=== PATIENT | female | born 1980 | race African-American/Black ===

== ENCOUNTER 2017-07-02 14:22 | Observation (INO) ==
--- NOTE | 2017-07-02 15:40 | Emergency Department Note ---
Disposition Clinical Impression: Slurred speech, Weakness Headache Qualifiers: Headache type: unspecified Headache chronicity pattern: acute headache Intractability: not intractable Qualified Code(s): R51 - Headache Disposition: Admitted As Inpatient Condition: Fair Time of Disposition: 18:18 General Adult HPI - General Chief complaint: ED Syncope Stated complaint: "I feel really weird" Time Seen by Provider: 07/02/17 14:34 Source: patient Limitations: no limitations Nursing Notes Reviewed: Yes Vital Signs Reviewed: Yes - History of Present Illness HPI Narrative: Patient is a 37-year-old female that presents to the emergency department for not feeling right. She states that this morning after eating breakfast she started to feel lightheaded right before she was going to stand up and then felt like her left leg was somewhat weak. Her also reports that during this episode she was slurring her speech and has had slurred speech but has been improving. Patient states that she thought it could be related to her blood sugar however she has lost her glucometer at home and was not able to take her blood glucose. Patient states that the symptoms that she was experiencing at home have since resolved but she still feels tired. Pain Scale: 3 - Related Data Home Medications Medication Instructions Recorded Confirmed Metformin HCl [Glucophage] 1,000 mg PO DAILY #0 11/02/15 07/02/17 Multivitamin [One Daily Essential] 1 tab PO DAILY 05/30/16 07/02/17 Escitalopram [Lexapro] 20 mg PO DAILY 07/02/17 07/02/17 Lansoprazole [Prevacid] 15 mg PO DAILY 07/02/17 07/02/17 Sitagliptin Phosphate [Januvia] 50 mg PO DAILY 07/02/17 07/02/17 Allergies Allergy/AdvReac Type Severity Reaction Status Date / Time aloe vera Allergy Hives Verified 07/02/17 14:32 [From [employer]] ascorbic acid Allergy Hives Verified 07/02/17 14:32 [From [employer] [facility]] dimethicone Allergy Hives Verified 07/02/17 14:32 [From [employer] [facility]] Emollient Combination No.41 Allergy Hives Verified 07/02/17 14:32 [From [employer] [facility]] petrolatum,white Allergy Hives Verified 07/02/17 14:32 [From [employer] [facility]] vitamin A Allergy Hives Verified 07/02/17 14:32 [From [employer] [facility]] vitamin E (d-alpha Allergy Hives Verified 07/02/17 14:32 tocopherol) [From [employer] [facility]] latex AdvReac Rash Verified 07/02/17 14:32 All systems ED: reviewed and negative except as stated. Constitutional: Reports: other (Tired) Eyes: Denies: vision change Cardiovascular: Denies: chest pain Respiratory: Denies: dyspnea Gastrointestinal: Denies: abdominal pain, nausea, vomiting Neurological: Reports: weakness (Mild weakness of left lower extremity that has resolved) Past Medical History - Past Medical History Medical history: Reports: diabetes Surgical history: Reports: cholecystectomy, other Psychiatric history: Reports: anxiety, ADHD, depression - Social History Smoking Status: Current every day smoker Smokeless Tobacco Status: No Alcohol use: Reports: occasionally Drug use: Reports: none Physical Exam - General Limitations: no limitations General appearance: alert, in no apparent distress - Head Head exam: atraumatic, normocephalic - Eye Eye exam: Present: normal appearance, EOMI - Neck Neck exam: Present: normal inspection, full ROM, trachea midline - Respiratory Respiratory exam: Present: normal lung sounds bilaterally. Absent: respiratory distress, wheezes - Cardiovascular Cardiovascular exam: Present: regular rate, normal rhythm, normal heart sounds, +S1, +S2 - Abdominal Exam Abdominal exam: Present: soft, Non-Tender, normal bowel sounds - Neurological Exam Neurological exam: Present: alert, oriented X3 - Expanded Neurological Exam Patient oriented to: Present: person, place, time Cranial nerves: EOM function (II, III, IV, ): Normal, facial sensation (V): Normal, facial palsy (VII): Normal, gag reflex (IX): Normal, spinal accessory function (XI): Normal, tongue deviation (XII): Normal Cerebellar function: finger to nose: Normal, heel to patel: Normal Motor strength - LUE: 5/5 Motor strength - RUE: 5/5 Motor strength - LLE: 5/5 Motor strength - RLE: 5/5 Upper motor neuron exam: pronator drift: Absent bilaterally Sensory exam upper extremity: light touch: Normal Sensory exam lower extremity: light touch: Normal Coma Scale Eye Opening: Spontaneous Coma Scale Motor Response: Obeys Commands Coma Scale Verbal Response: Oriented Coma Scale Total: 15 - Psychiatric Psychiatric exam: Present: normal affect, normal mood - Skin Skin exam: Present: warm, dry, intact Course Vital Signs Temperature 98.4 F 07/02/17 14:29 Pulse Rate 96 07/02/17 14:29 Respiratory Rate 16 07/02/17 14:29 Blood Pressure 111/75 07/02/17 14:29 O2 Sat by Pulse Oximetry 96 07/02/17 14:29 Temperature 98.4 F 07/02/17 14:29 Pulse Rate 92 07/02/17 16:26 Respiratory Rate 16 07/02/17 16:26 Blood Pressure 107/74 07/02/17 16:26 O2 Sat by Pulse Oximetry 96 07/02/17 16:26 Oxygen Delivery Oxygen Delivery Room Air Medical Decision Making - MDM Narrative Medical decision making narrative: Due the patient having episode of slurred speech with, dizziness, headache and possible left lower extremity weakness we will obtain a CT of the head to rule out any intracranial pathology is. Also do a laboratory workup on this patient consisting of CBC, BMP, chest x-ray, EKG, troponin and blood glucose. The patient's blood glucose was 136. The patient's CT CTA of head and neck are all negative for acute process. It showed a mild anemia of 11.2 however this appears to be chronic for her. The remainder of the patient's laboratory testing was unremarkable. Due the patient's symptoms of slurred speech, weakness and a headache it is concerning that this could possibly be a neural- related process and the patient should be admitted to the hospital for further evaluation and management. The patient's symptoms have completely resolved here in the emergency department. Family states that her speech is normal for her and has had no associated facial asymmetries or droops that they are aware of. No further testing here in the emergency department was indicated at this time. I called and spoken with the hospitalist and they have accepted the patient to their service. She will be admitted to the hospital at this time. - Lab Data Lab results reviewed: Yes I reviewed the patient's lab results. Result diagrams: 07/02/17 15:54 07/02/17 15:54 Lab Results 07/02/17 07/02/17 07/02/17 Range/Units 14:59 15:54 15:54 WBC 9.6 (4.3-11.1) K/mcL RBC 4.14 (3.82-4.97) M/mcL Hgb 11.2 L (11.5-15.4) g/dL Hct 35.8 (35.3-44.9) % MCV 86.5 (83.0-100.0) fL MCH 27.1 L (28.0-33.3) pg MCHC 31.3 L (31.6-35.5) g/dL RDW 15.9 H (11.5-14.5) % Plt Count 319 (140-400) K/mcL MPV 9.3 L (9.4-12.4) fL Immature Gran % 0.3 (0-4) % Seg Neutrophils % 65.5 % Lymphocytes % 26.1 % Monocytes % 6.4 % Eosinophils % 1.3 % Basophils % 0.4 % Neutrophils # 6.3 (1.6-8.9) K/mcL Lymphocytes # 2.5 (0.6-4.6) K/mcL Monocytes # 0.6 (0.0-1.3) K/mcL Eosinophils # 0.1 (0.0-0.6) K/mcL Basophils # 0.0 (0.0-0.2) K/mcL PT 10.6 (9.4-12.1) Seconds INR 1.0 APTT 28.9 (26.0-36.0) Seconds Sodium (136-145) mEq/L Potassium (3.5-5.1) mEq/L Chloride (98-107) mEq/L Carbon Dioxide (23-29) mEq/L BUN (6-20) mg/dL Creatinine (0.60-1.20) mg/dL Est GFR ( Amer) (> 60) Est GFR (Non-Af Amer) (> 60) BUN/Creatinine Ratio (6-26) Glucose (70-105) mg/dL POC Glucose 136 H (58-89) Calculated Osmolality (280-300) Calcium (8.6-10.3) mg/dL Troponin I (< 0.04) ng/mL Urine Color (Yellow) Urine Clarity (Clear) Urine pH (5.0-8.0) pH Units Ur Specific [place] (1.010-1.025) Urine Protein (Neg-Trace) mg/dL Urine Glucose (UA) (Normal) mg/dL Urine Ketones (Negative) mg/dL Urine Blood (Negative) Urine Nitrite (Negative) Urine Bilirubin (Negative) Urine Urobilinogen (Normal) mg/dL Ur Leukocyte Esterase (Negative) Ur Culture Indicated? (NO) Urine Test (Negative) 07/02/17 07/02/17 07/02/17 Range/Units 15:54 15:54 16:26 WBC (4.3-11.1) K/mcL RBC (3.82-4.97) M/mcL Hgb (11.5-15.4) g/dL Hct (35.3-44.9) % MCV (83.0-100.0) fL MCH (28.0-33.3) pg MCHC (31.6-35.5) g/dL RDW (11.5-14.5) % Plt Count (140-400) K/mcL MPV (9.4-12.4) fL Immature Gran % (0-4) % Seg Neutrophils % % Lymphocytes % % Monocytes % % Eosinophils % % Basophils % % Neutrophils # (1.6-8.9) K/mcL Lymphocytes # (0.6-4.6) K/mcL Monocytes # (0.0-1.3) K/mcL Eosinophils # (0.0-0.6) K/mcL Basophils # (0.0-0.2) K/mcL PT (9.4-12.1) Seconds INR APTT (26.0-36.0) Seconds Sodium 138 (136-145) mEq/L Potassium 3.8 (3.5-5.1) mEq/L Chloride 106 (98-107) mEq/L Carbon Dioxide 27 (23-29) mEq/L BUN 11 (6-20) mg/dL Creatinine 0.70 (0.60-1.20) mg/dL Est GFR ( Amer) > 60 (> 60) Est GFR (Non-Af Amer) > 60 (> 60) BUN/Creatinine Ratio 16 (6-26) Glucose 109 H (70-105) mg/dL POC Glucose (58-89) Calculated Osmolality 286 (280-300) Calcium 9.5 (8.6-10.3) mg/dL Troponin I < 0.03 (< 0.04) ng/mL Urine Color Yellow (Yellow) Urine Clarity Clear (Clear) Urine pH 6.0 (5.0-8.0) pH Units Ur Specific [place] 1.027 H (1.010-1.025) Urine Protein Negative (Neg-Trace) mg/dL Urine Glucose (UA) 250 H (Normal) mg/dL Urine Ketones Negative (Negative) mg/dL Urine Blood Negative (Negative) Urine Nitrite Negative (Negative) Urine Bilirubin Negative (Negative) Urine Urobilinogen Normal (Normal) mg/dL Ur Leukocyte Esterase Negative (Negative) Ur Culture Indicated? NO (NO) Urine Test (Negative) 07/02/17 Range/Units 16:26 WBC (4.3-11.1) K/mcL RBC (3.82-4.97) M/mcL Hgb (11.5-15.4) g/dL Hct (35.3-44.9) % MCV (83.0-100.0) fL MCH (28.0-33.3) pg MCHC (31.6-35.5) g/dL RDW (11.5-14.5) % Plt Count (140-400) K/mcL MPV (9.4-12.4) fL Immature Gran % (0-4) % Seg Neutrophils % % Lymphocytes % % Monocytes % % Eosinophils % % Basophils % % Neutrophils # (1.6-8.9) K/mcL Lymphocytes # (0.6-4.6) K/mcL Monocytes # (0.0-1.3) K/mcL Eosinophils # (0.0-0.6) K/mcL Basophils # (0.0-0.2) K/mcL PT (9.4-12.1) Seconds INR APTT (26.0-36.0) Seconds Sodium (136-145) mEq/L Potassium (3.5-5.1) mEq/L Chloride (98-107) mEq/L Carbon Dioxide (23-29) mEq/L BUN (6-20) mg/dL Creatinine (0.60-1.20) mg/dL Est GFR ( Amer) (> 60) Est GFR (Non-Af Amer) (> 60) BUN/Creatinine Ratio (6-26) Glucose (70-105) mg/dL POC Glucose (58-89) Calculated Osmolality (280-300) Calcium (8.6-10.3) mg/dL Troponin I (< 0.04) ng/mL Urine Color (Yellow) Urine Clarity (Clear) Urine pH (5.0-8.0) pH Units Ur Specific [place] (1.010-1.025) Urine Protein (Neg-Trace) mg/dL Urine Glucose (UA) (Normal) mg/dL Urine Ketones (Negative) mg/dL Urine Blood (Negative) Urine Nitrite (Negative) Urine Bilirubin (Negative) Urine Urobilinogen (Normal) mg/dL Ur Leukocyte Esterase (Negative) Ur Culture Indicated? (NO) Urine Test Negative (Negative) - Radiology Data Radiology results reviewed: Yes I reviewed the patient's radiology results. Chest X-Ray 07/02/17 15:24 IMPRESSION: No evidence of acute cardiopulmonary disease. D/ / 07/02/2017 15:59:23 Christopher Harris MD / ralph Interpreting Provider: Christopher Harris MD Head CT 07/02/17 15:24 IMPRESSION: No acute intracranial abnormality. D/ / Lilia Andrade Cha, MD / Lilia Andrade Cha, MD Interpreting Provider: Lilia Andrade Cha, MD Head CTA 07/02/17 16:34 IMPRESSION: Normal CTA of the head and neck. D/ / Mode Adam / Mode Adam Interpreting Provider: Mode Adam Neck CTA 07/02/17 16:34 IMPRESSION: Normal CTA of the head and neck. D/ / Mode Adam / Mode Adam Interpreting Provider: Mode Adam - EKG Data EKG #1 EKG attestation: Yes I reviewed and interpreted this EKG. EKG results narrative: EKG showed a sinus rhythm at a rate of 82 bpm, MN interval of 128, QRS duration of 85, QTC of 420 with a normal axis. There were some inverted and flattened T waves in lead 3 however these were present on previous EKG. Previous EKG was on 05/23/16 which showed a sinus rhythm at a rate of 91 bpm. There is no acute changes noted between these 2 EKGs. Attestation Statement - Attestation Attestation: I, Jeremiah Perry DO, examined this patient [id number] and my medical decision-making was reviewed with Dr. Rivera Estevez, Resident Physician. I agree with the documented findings, disposition and treatment plan as described except to the extent set forth below. Please see my progress notes for details. 37-year-old female presents to emergency room with complaint of generalized weakness. Just prior to coming to the emergency room patient was at home after eating breakfast. She started to feel very lightheaded and had tunnel vision. Denied any chest pain or shortness of breath at the time. She felt like the world was coming in and she felt lightheaded and almost passed out. She fell backwards into her significant other's arms. A cautery. After they set her down on the ground without any injury, patient started to have some slurred speech. Patient came out of this episode without any issue. She describes some tingling sensation in her left leg. Patient did not have the ability to check her glucose at home secondary to losing her glucometer. Patient denies any other complaints or issues privately [place] today. On arrival here her Accu-Chek was 139. Her head is atraumatic pupils are round reactive retro- ocular muscles are intact. Patient speaking in full sentences signs of dysarthria or inability to converse. Patient has full range of motion of the neck without any trauma or injury. She does not show any acute signs of issue in her mouth. Patient has no stridor no trismus. Cranial nerves II through XII are grossly intact. Extraocular muscles are intact. Patient has no acute signs of cerebellar dysfunction with [id number] testing and [id number] testing. Patient does not have any acute neurologic deficits at this time. She is back to baseline according to the significant other who is at the bedside. Physically there is no acute findings concerning for strokelike symptoms. NIH stroke scale is 0 at this time. Vital signs are reviewed and are unremarkable. Patient's lungs are clear heart is regular. Patient's abdomen is soft nontender nondistended no guarding no rigidity and no peritoneal symptoms this time. Patient will be evaluated here today with EKG, chest x-ray, CT of the head, screening laboratory workup. Patient will most likely need admission for what appears to be a near syncopal event of unknown etiology. Patient does have a history of seizures and this does not appear to be in aspect at this time. Patient is not postictal and did not have any other acute symptoms. Disposition determined once a full workup is established. Patient may require admission secondary to the near syncopal events here today. Stroke etiology does not appear to be present on evaluation by we will rule this out definitively with evaluation here in the emergency room and then possible admission. See detailed documentation of the physical exam, medical intervention, medical decision-making and disposition in the resident physician' s note. No critical care was applied in this patient's treatment course and evaluation. 1825 Patient will be admitted with negative CT angiography of the head and neck. Patient will be treated for what appears to be near syncopal event with other underlying etiology. Patient is otherwise stable. Admission process completed.
[2017-07-02 16:13] LABS: Basophils % 0.4 %; Eosinophils # 0.1 K/mcL (0.0-0.6); Eosinophils % 1.3 %; Hematocrit 35.8 % (35.3-44.9); Hemoglobin 11.2 g/dL (11.5-15.4); Immature Granulocytes % 0.3 % (0-4); Lymphocytes # 2.5 K/mcL (0.6-4.6); Lymphocytes % 26.1 %; Mean Corpuscular HGB Conc 31.3 g/dL (31.6-35.5); Mean Corpuscular Hemoglobin 27.1 pg (28.0-33.3); Mean Corpuscular Volume 86.5 fL (83.0-100.0); Mean Platelet Volume 9.3 fL (9.4-12.4); Monocytes # 0.6 K/mcL (0.0-1.3); Monocytes % 6.4 %; Neutrophils # 6.3 K/mcL (1.6-8.9); Platelet Count 319 K/mcL (140-400); Red Blood Count 4.14 M/mcL (3.82-4.97); Red Cell Distribution Width 15.9 % (11.5-14.5); Segmented Neutrophils % 65.5 %
[2017-07-02 16:19] LABS: Prothrombin Time 10.6 Seconds (9.4-12.1)
[2017-07-02 16:21] LABS: Activated Partial Thrombo Time 28.9 Seconds (26.0-36.0)
[2017-07-02 16:29] LABS: BUN/Creatinine Ratio 16 (6-26); Blood Urea Nitrogen 11 mg/dL (6-20); Calcium 9.5 mg/dL (8.6-10.3); Carbon Dioxide 27 mEq/L (23-29); Chloride 106 mEq/L (98-107); Glucose 109 mg/dL (70-105); Osmolality,Calculated 286 (280-300); Potassium 3.8 mEq/L (3.5-5.1); Sodium 138 mEq/L (136-145); eGFR For African Americans > 60 (> 60); eGFR For Non-African Americans > 60 (> 60)
[2017-07-02 16:43] LABS: Bilirubin,Urine Negative (Negative); Blood,Urine Negative (Negative); Clarity,Urine Clear (Clear); Color,Urine Yellow (Yellow); Glucose,Urine (UA) 250 mg/dL (Normal); Ketones,Urine Negative (Negative); Leukocyte Esterase,Urine Negative (Negative); Nitrite,Urine Negative (Negative); Protein,Urine Negative (Neg-Trace); Specific Gravity,Urine 1.027 (1.010-1.025); Urobilinogen,Urine Normal (Normal)
[2017-07-02] MEDS: Nicotine 14 MG PATCH.TD24 TD SCH (17:26)
[2017-07-02] MEDS ORDERED: *HR* HYDROcodone/Acet 5/325 mg TABLET PO PRN (21:28)
[2017-07-02] MEDS ORDERED: Ondansetron 4 MG/2 ML VIAL IVP PRN (21:28)
[2017-07-02] MEDS ORDERED: Naloxone 0.4 MG/ML INJ IVP PRN (21:28)
[2017-07-02] MEDS ORDERED: D5% in Water 1,000 ML IVC PRN (21:36)
[2017-07-02] MEDS ORDERED: Dextrose Gel 15 GM/37.5 ML TUBE PO PRN ×2 (21:36)
[2017-07-02] MEDS ORDERED: *HR* Dextrose 50 % in Water (Syg) 50 ML SYRINGE IVP PRN (21:36)
[2017-07-02 22:07] LABS: Hemoglobin A1C 6.6 %
[2017-07-02] MEDS: Acetaminophen 325 MG TABLET PO PRN (22:10)
[2017-07-02] MEDS: 0.9 % Sodium Chloride 1,000 ML IVC SCH (22:11)
--- NOTE | 2017-07-02 22:24 | Internal Med History&Physical ---
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 No arrythamias noticed Started her on ASA 81mg..she is ASA naive Will check FLP In AM MRI of brain in AM Not a candidate for tPA due to TIA / Resolved symptoms Qualifiers: Qualified Code(s): G45.9 - Transient cerebral ischemic attack, unspecified (2) DM2 (diabetes mellitus, type 2) Current visit: Yes Status: Acute will check HbA1C Held Metfromin on ISS Qualifiers: Diabetes mellitus complication status: without complication Qualified Code( s): E11.9 - Type 2 diabetes mellitus without complications (3) Tobacco dependence Current visit: Yes Status: Acute Counseled to quit on nicotine patch (4) Anxiety Current visit: Yes Status: Acute Resumed home meds Internal Medicine - H&P: HPI Chief complaint: Slurred speech and Left side weakness Admitted From: Emergency Dept Plans for Post Hospital Care: Home History of present illness: Ms. Loving is a 37 year old female with known PMH of DM2 and anxiety who presented to ER with Left side weakness and slurred speech started this morning. Pt stated this morning after eating breakfast she started to feel lightheaded right before she was going to stand up and then felt like her left leg was somewhat weak. Her family members noticed she had some slurred speech. In the ER her slurred speech improved and left leg weakness also improved. She denied any CP / SOB. She still c/o some headaches. Denied any N/V. Denied any GI / symptoms. Past Med Surg Social Fam HX - Past Medical History Medical history: diabetes Psychiatric history: anxiety, ADHD, depression - Past Surgical History Surgical History: cholecystectomy, other - Social History Smoking Status: Current every day smoker Packs per day: 1 Smokeless Tobacco Status: No Alcohol use: occasionally Drug use: none - Family History Mother Adopted: Yes (patient adopted, does not know anything about mother) Internal Medicine - H&P: Meds Metformin HCl [Glucophage] 1,000 mg PO DAILY #0 11/02/15 [History] Multivitamin [One Daily Essential] 1 tab PO DAILY 05/30/16 [History] Escitalopram [Lexapro] 20 mg PO DAILY 07/02/17 [History] Lansoprazole [Prevacid] 15 mg PO DAILY 07/02/17 [History] Sitagliptin Phosphate [Januvia] 50 mg PO DAILY 07/02/17 [History] 3 Allergy/AdvReac Type Severity Reaction Status Date / Time aloe vera Allergy Hives Verified 07/02/17 14:32 [From [employer] [employer] [facility]] ascorbic acid Allergy Hives Verified 07/02/17 14:32 [From [employer] [facility]] dimethicone Allergy Hives Verified 07/02/17 14:32 [From [employer] [facility]] Emollient Combination No.41 Allergy Hives Verified 07/02/17 14:32 [From [employer] [facility]] petrolatum,white Allergy Hives Verified 07/02/17 14:32 [From [facility]] vitamin A Allergy Hives Verified 07/02/17 14:32 [From [employer] [facility]] vitamin E (d-alpha Allergy Hives Verified 07/02/17 14:32 tocopherol) [From [employer] [facility]] latex AdvReac Rash Verified 07/02/17 14:32 All Systems PM: A 10-system review of systems was performed and is negative for pertinent findings except as documented above in the HPI. Review of systems: Reviewed all the systems, everything is benign except the systems and symptoms I mentioned in HPI - Constitutional Vitals: Temp Pulse Resp BP Pulse Ox 97.9 F 96 15 110/76 98 07/02/17 19:38 07/02/17 19:38 07/02/17 19:38 07/02/17 19:38 07/02/17 19:55 General appearance: Present: cooperative, A&O X 3, answers questions appropriately - Head Head exam: Present: atraumatic, normal inspection - Neck Neck exam general surgery: Present: supple - Respiratory Respiratory exam: Present: decreased breath sounds. Absent: rales, respiratory distress, rhonchi, wheezes - Cardiovascular Cardiovascular exam: Present: RRR, +S1, +S2. Absent: tachycardia - GI/Abdominal GI/Abdominal exam: Present: normal bowel sounds, soft. Absent: rebound, rigid, tenderness - Extremities Exam Extremities exam: Absent: calf tenderness, pedal edema, tenderness - Back Exam Back exam: Absent: CVA tenderness (L), CVA tenderness (R) - Neurological Exam Neurological exam: Present: alert, CN II-XII intact, oriented X3, reflexes normal, no focal deficits, strengths equal and symetr throughout. Absent: pronater drift, facial droop, speech deficit - Psychiatric Psychiatric exam: Present: normal affect, normal mood Internal Med - H&P Results - Labs CBC & Chem 7: 07/02/17 15:54 07/02/17 15:54
[2017-07-03 04:51] LABS: Chol/HDL Ratio 4.9 (0-4.9)
[2017-07-03] MEDS: Acetaminophen 325 MG TABLET PO PRN (05:55)
[2017-07-03] MEDS: Nicotine 14 MG PATCH.TD24 TD SCH (08:22)
[2017-07-03] MEDS: Insulin LISPRO 300 UNITS/3 ML VIAL SQ SCH ×2 (08:24→13:04)
[2017-07-03] MEDS: 0.9 % Sodium Chloride 1,000 ML IVC SCH (08:24)
[2017-07-03] MEDS ORDERED: *HR* SitaGLIPtin 25 MG TABLET PO SCH (09:00)
[2017-07-03] MEDS ORDERED: Aspirin Enteric Coated 81 MG Tablet PO SCH (09:00)
[2017-07-03] MEDS ORDERED: Multivit/Ca/Min/Fe/FA 1 TAB TABLET PO SCH (09:00)
[2017-07-03 12:15] VITALS: BP 113/62
--- NOTE | 2017-07-03 13:00 | Discharge Summary ---
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 07/03/17 [Rx] Allergies/Adverse Reactions: 3 Allergy/AdvReac Type Severity Reaction Status Date / Time aloe vera Allergy Hives Verified 07/02/17 14:32 [From [employer] [facility]] ascorbic acid Allergy Hives Verified 07/02/17 14:32 [From [employer] [employer] [facility]] dimethicone Allergy Hives Verified 07/02/17 14:32 [From [employer] [facility]] Emollient Combination No.41 Allergy Hives Verified 07/02/17 14:32 [From [employer]] petrolatum,white Allergy Hives Verified 07/02/17 14:32 [From [employer] [facility]] vitamin A Allergy Hives Verified 07/02/17 14:32 [From [employer] [facility]] vitamin E (d-alpha Allergy Hives Verified 07/02/17 14:32 tocopherol) [From [facility]] latex AdvReac Rash Verified 07/02/17 14:32 Procedures/tests Complete & Pending: Procedures Performed prior 72 hours Category Date Time Status MR head/brain wo con [MR] Routine MRI 07/03/17 21:35 Completed Date of admission: 07/02/17 18:35 Primary care physician: Marcia Giron - Patient Status Disposition: Home, Self-Care Functional capacity at discharge: independent ambulation Overall status at discharge: patient is back to baseline - Discharge Instructions - Diet and Activity Activity: increase activity as tolerated Diet: diabetic diet Interval History: Ms. Loving is a 37 year old female with known PMH of DM2 and anxiety who presented to ER with Left side weakness and slurred speech started on the morning of information. In the ER her slurred speech improved and left leg weakness also improved. She denied any CP / SOB. She still c/o some headaches. Denied any N/V. Denied any GI / symptoms. Head CT was negative for a new strokes a MRI was also done and was negative for any new acute strokes symptoms improved significantly at the time of discharge. We will be discharging her with aspirin Hospital course: Ms. Loving is a 37 year old female Time spent discussing smoking cessation with patient: more than 10 minutes - Time Spent with Patient Total time spent providing and/or coordinating discharge services: Greater than 30 minutes - Constitutional Vitals: Temp Pulse Resp BP Pulse Ox 98.3 F 84 16 113/62 97 07/03/17 12:08 07/03/17 12:08 07/03/17 12:08 07/03/17 12:08 07/03/17 12:08 General appearance: Present: cooperative, A&O X 3, answers questions appropriately Exam: General , Alert , oriented, HEENT- PERRLA. EOMI CVS- S1S2 N, No Murmurs, Rubs, gallops, No JVD RS- CTA Bilaterally. No rales no Rhonchi heard Abdomen- Soft NT ND, bowel sounds heard across all 4 quadrants Neuro- No Focal deficits appreciated, CN 2-12 intact, Motors- power 5/5 UE, 5/5 LE Bilaterally, Sensations intact Extremeties- no Clubbing/ edema/ wounds seen
--- NOTE | 2017-07-03 17:40 | Electrocardiograph Report ---
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
[2017-07-03] MEDS ORDERED: Insulin LISPRO 300 UNITS/3 ML VIAL SQ SCH (21:00)
== END 2017-07-03 13:39 | disposition home or self-care (01) ==
LOC: EMEROO 14:22 → 3BNU 14:22
PROVIDERS: ADMIT Internal Medicine; ATTEND Registered Nurse

== ENCOUNTER 2019-05-16 22:42 | Observation (INO) ==
[2019-05-16] MEDS ORDERED: Ondansetron 4 MG/2 ML VIAL IVP ONE (23:22)
[2019-05-16] MEDS ORDERED: *HR* LORazepam 2 MG/ML VIAL IVP ONE (23:37)
[2019-05-16] MEDS: 0.9 % Sodium Chloride 1,000 ML IVC SCH (23:58)
[2019-05-17 00:08] LABS: VBG HCO3 13 mEq/L (21-27); VBG PCO2 19 mmHg (41-51); VBG PH 7.46 pH Units (7.32-7.42); VBG PO2 111 mmHg (25-50)
[2019-05-17 00:09] LABS: Basophils # 0.1 K/mcL (0.0-0.2); Basophils % 0.3 %; Eosinophils # 0.1 K/mcL (0.0-0.6); Eosinophils % 0.3 %; Hematocrit 39.8 % (35.3-44.9); Hemoglobin 12.8 g/dL (11.5-15.4); Immature Granulocytes % 0.4 % (0-4); Lymphocytes # 2.6 K/mcL (0.6-4.6); Lymphocytes % 12.6 %; Mean Corpuscular HGB Conc 32.2 g/dL (31.6-35.5); Mean Corpuscular Hemoglobin 29.4 pg (28.0-33.3); Mean Corpuscular Volume 91.3 fL (83.0-100.0); Mean Platelet Volume 9.2 fL (9.4-12.4); Monocytes # 0.9 K/mcL (0.0-1.3); Monocytes % 4.3 %; Neutrophils # 16.9 K/mcL (1.6-8.9); Platelet Count 360 K/mcL (140-400); Red Blood Count 4.36 M/mcL (3.82-4.97); Red Cell Distribution Width 14.6 % (11.5-14.5); Segmented Neutrophils % 82.1 %; White Blood Count 20.6 K/mcL (4.3-11.1)
[2019-05-17 00:30] LABS: Alanine Aminotransferase 18 Units/L (7-52); Albumin 4.3 g/dL (3.5-5.7); Albumin/Globulin Ratio 1.3 (1.1-2.2); Alkaline Phosphatase 84 Units/L (34-104); Amylase 46 Units/L (29-103); Aspartate Amino Transferase 13 Units/L (13-39); BUN/Creatinine Ratio 17 (6-26); Bilirubin,Direct 0.1 mg/dL (0.0-0.2); Bilirubin,Indirect 0.2 mg/dL (0.0-1.0); Bilirubin,Total 0.3 mg/dL (0.3-1.0); Blood Urea Nitrogen 13 mg/dL (6-20); Calcium 9.2 mg/dL (8.6-10.3); Carbon Dioxide 11 mEq/L (23-29); Chloride 108 mEq/L (98-107); Globulin 3.4 g/dL (2.4-3.5); Glucose 183 mg/dL (70-105); Lipase 22 Units/L (11-82); Magnesium 1.5 mg/dL (1.6-2.6); Osmolality,Calculated 289 (280-300); Potassium 3.2 mEq/L (3.5-5.1); Sodium 137 mEq/L (136-145); Total Protein 7.7 g/dL (6.4-8.9); Troponin I < 0.03 ng/mL (< 0.04); eGFR For African Americans > 60 (> 60); eGFR For Non-African Americans > 60 (> 60)
[2019-05-17] MEDS ORDERED: Potassium Chloride 40 MEQ, Lidocaine 1% 2 ML in 0.9 % Sodium Chloride 500 ML IVPB ONE (01:12)
[2019-05-17] MEDS: 0.9 % Sodium Chloride 1,000 ML IVC SCH ×4 (01:26→14:20)
[2019-05-17 02:09] LABS: Bilirubin,Urine Negative (Negative); Blood,Urine Negative (Negative); Clarity,Urine Clear (Clear); Color,Urine Yellow (Yellow); Glucose,Urine (UA) Normal (Normal); Ketones,Urine 80 mg/dL (Negative); Leukocyte Esterase,Urine Negative (Negative); Nitrite,Urine Negative (Negative); Protein,Urine 30 mg/dL (Neg-Trace); Specific Gravity,Urine 1.021 (1.010-1.025); Urobilinogen,Urine Normal (Normal)
[2019-05-17] MEDS ORDERED: *HR* Promethazine 25 MG/ML VIAL IVP ONE (02:17)
[2019-05-17] MEDS ORDERED: MetroNIDAZOLE 500 MG/100 ML 500 MG/100 ML BAG IVPB ONE (02:34)
[2019-05-17] MEDS ORDERED: Naloxone 0.4 MG/ML INJ IVP PRN (07:36)
[2019-05-17] MEDS ORDERED: Ondansetron 4 MG/2 ML VIAL IVP PRN (07:36)
[2019-05-17] MEDS ORDERED: *HR* Dextrose 50 % in Water (Syg) 50 ML SYRINGE IVP PRN (07:39)
[2019-05-17] MEDS ORDERED: Dextrose Gel 15 GM/37.5 ML TUBE PO PRN ×2 (07:39)
[2019-05-17] MEDS ORDERED: D5% in Water 1,000 ML IVC PRN (07:39)
[2019-05-17] MEDS ORDERED: *HR* LORazepam 0.5 MG TABLET PO PRN (07:42)
[2019-05-17] MEDS ORDERED: MetroNIDAZOLE 500 MG/100 ML 500 MG/100 ML BAG IVPB SCH (08:00)
[2019-05-17 08:08] LABS: Basophils % 0.1 %; Eosinophils % 0.3 %; Hematocrit 33.4 % (35.3-44.9); Immature Granulocytes % 0.3 % (0-4); Lymphocytes # 1.1 K/mcL (0.6-4.6); Lymphocytes % 8.8 %; Mean Corpuscular HGB Conc 33.5 g/dL (31.6-35.5); Mean Corpuscular Hemoglobin 29.6 pg (28.0-33.3); Mean Corpuscular Volume 88.1 fL (83.0-100.0); Mean Platelet Volume 8.8 fL (9.4-12.4); Monocytes # 0.2 K/mcL (0.0-1.3); Monocytes % 1.9 %; Neutrophils # 11.2 K/mcL (1.6-8.9); Platelet Count 319 K/mcL (140-400); Red Blood Count 3.79 M/mcL (3.82-4.97); Red Cell Distribution Width 14.7 % (11.5-14.5); Segmented Neutrophils % 88.6 %; White Blood Count 12.6 K/mcL (4.3-11.1)
[2019-05-17 08:12] LABS: Hemoglobin 11.2 g/dL (11.5-15.4)
[2019-05-17 08:31] LABS: BUN/Creatinine Ratio 19 (6-26); Blood Urea Nitrogen 10 mg/dL (6-20); Calcium 7.5 mg/dL (8.6-10.3); Carbon Dioxide 15 mEq/L (23-29); Chloride 110 mEq/L (98-107); Glucose 164 mg/dL (70-105); Osmolality,Calculated 287 (280-300); Potassium 3.5 mEq/L (3.5-5.1); Sodium 137 mEq/L (136-145); eGFR For African Americans > 60 (> 60); eGFR For Non-African Americans > 60 (> 60)
[2019-05-17] MEDS: Ibuprofen 400 MG TABLET PO PRN ×2 (10:12→19:57)
[2019-05-17] MEDS: Insulin LISPRO 300 UNITS/3 ML VIAL SQ SCH ×2 (11:49→17:20)
[2019-05-17 15:09] LABS: C.difficile Toxin A/B Gene PCR Not detected (Not detect); Campylobacter by PCR Not detected (Not detect); Enteroaggregative E.coli(EAEC) DETECTED (Not detect); Plesiomonas shigelloides PCR Not detected (Not detect); Salmonella PCR Not detected (Not detect); Vibrio PCR Not detected (Not detect); Vibrio cholerae PCR Not detected (Not detect); Yersinia enterocolitica PCR Not detected (Not detect)
[2019-05-17 15:10] LABS: Adenovirus F 40/41 PCR Not detected (Not detect); Astrovirus PCR Not detected (Not detect); Cryptosporidium by PCR Not detected (Not detect); Cyclospora cayetanensis PCR Not detected (Not detect); E. coli O157 by PCR Not detected (Not detect); Entamoeba histolytica PCR Not detected (Not detect); Enteropathogenic E.coli(EPEC) Not detected (Not detect); Enterotoxigenic E.coli (ETEC) Not detected (Not detect); Giardia lamblia PCR Not detected (Not detect); Norovirus GI/GII PCR DETECTED (Not detect); Rotavirus A PCR Not detected (Not detect); Sapovirus PCR Not detected (Not detect); Shig/EnteroinvasiveE coli EIEC Not detected (Not detect); Shigalike tox-prod E coli STEC Not detected (Not detect)
[2019-05-17] MEDS ORDERED: Fluticasone Propionate Nasal 50 MCG/SPRAY BOTTLE NS PRN (15:20)
[2019-05-17] MEDS: *HR* Heparin 5,000 UNIT/ML VIAL SQ SCH (17:19)
[2019-05-17] MEDS: Ziprasidone 20 MG CAPSULE PO SCH (17:21)
[2019-05-17] MEDS: Topiramate 25 MG TABLET PO SCH (19:57)
[2019-05-17] MEDS ORDERED: Acetaminophen 325 MG TABLET PO ONE (21:44)
[2019-05-18] MEDS: 0.9 % Sodium Chloride 1,000 ML IVC SCH ×2 (02:18→09:33)
[2019-05-18] MEDS: *HR* Heparin 5,000 UNIT/ML VIAL SQ SCH (05:52)
[2019-05-18 07:11] LABS: Basophils % 0.2 %; Eosinophils # 0.1 K/mcL (0.0-0.6); Eosinophils % 2.2 %; Hematocrit 31.6 % (35.3-44.9); Hemoglobin 10.6 g/dL (11.5-15.4); Immature Granulocytes % 0.2 % (0-4); Lymphocytes # 1.6 K/mcL (0.6-4.6); Lymphocytes % 33.1 %; Mean Corpuscular HGB Conc 33.5 g/dL (31.6-35.5); Mean Corpuscular Hemoglobin 29.7 pg (28.0-33.3); Mean Corpuscular Volume 88.5 fL (83.0-100.0); Monocytes # 0.4 K/mcL (0.0-1.3); Monocytes % 7.3 %; Neutrophils # 2.8 K/mcL (1.6-8.9); Platelet Count 290 K/mcL (140-400); Red Blood Count 3.57 M/mcL (3.82-4.97); Red Cell Distribution Width 15.2 % (11.5-14.5); White Blood Count 4.9 K/mcL (4.3-11.1)
[2019-05-18 07:30] LABS: BUN/Creatinine Ratio 10 (6-26); Blood Urea Nitrogen 5 mg/dL (6-20); Calcium 7.4 mg/dL (8.6-10.3); Carbon Dioxide 20 mEq/L (23-29); Chloride 113 mEq/L (98-107); Glucose 133 mg/dL (70-105); Osmolality,Calculated 291 (280-300); Potassium 3.3 mEq/L (3.5-5.1); Sodium 141 mEq/L (136-145); eGFR For African Americans > 60 (> 60); eGFR For Non-African Americans > 60 (> 60)
[2019-05-18] MEDS ORDERED: LEVONORGESTREL ETHIN ESTRADIOL PO SCH (09:00)
[2019-05-18] MEDS ORDERED: [UNRECOGNIZED DRUG - OTHER] PO SCH (09:00)
[2019-05-18] MEDS ORDERED: AMPHETAMINE PO SCH (09:00)
[2019-05-18] MEDS ORDERED: DEXTROAMPHETAMINE PO SCH (09:00)
[2019-05-18] MEDS: Insulin LISPRO 300 UNITS/3 ML VIAL SQ SCH (09:28)
[2019-05-18] MEDS: Ibuprofen 400 MG TABLET PO PRN (09:32)
[2019-05-18] MEDS: Ziprasidone 20 MG CAPSULE PO SCH (09:32)
[2019-05-18] MEDS: Topiramate 25 MG TABLET PO SCH (09:33)
[2019-05-18] MEDS ORDERED: Azithromycin 250 MG TABLET PO SCH (10:00)
[2019-05-18 10:12] VITALS: BP 122/80
== END 2019-05-18 11:54 | disposition home or self-care (01) ==
LOC: EMEROOARM 22:42 → 2ANU 22:42 → SUATTDRO 05-17 03:29 → 2ANU 05-17 04:50
PROVIDERS: ADMIT Internal Medicine; ATTEND Internal Medicine

== ENCOUNTER 2020-11-24 10:15 | Inpatient (IN) ==
[2020-11-24 10:55] LABS: Bilirubin,Urine Negative (Negative); Blood,Urine Negative (Negative); Clarity,Urine Clear (Clear); Color,Urine Light-Yellow (Yellow); Glucose,Urine (UA) >=1000 mg/dL (Normal); Ketones,Urine Trace mg/dL (Negative); Leukocyte Esterase,Urine Negative (Negative); Mucus,Urine Few per lpf (None-Few); Nitrite,Urine Negative (Negative); Protein,Urine Trace mg/dL (Neg-Trace); RBC,Urine 0-3 per hpf (0-3); Specific Gravity,Urine 1.027 (1.010-1.025); Squamous Epithelial Cell,Urine Few per hpf (None-Few); Urobilinogen,Urine Normal (Normal); WBC,Urine 0-3 per hpf (0-3)
[2020-11-24 10:58] LABS: Amphetamine Screen,Urine Negative ng/mL (Cutoff=1000); Barbiturate Screen,Urine Negative ng/mL (Cutoff=200); Benzodiazepines Screen,Urine Positive ng/mL (Cutoff=200); Cannabinoid Screen,Urine Positive ng/mL (Cutoff = 50); Cocaine Screen,Urine Negative ng/mL (Cutoff= 300); Opiate Screen,Urine Negative ng/mL (Cutoff=300); Phencyclidine Screen,Urine Negative ng/mL (Cutoff=25)
[2020-11-24 11:46] LABS: Basophils % 0.2 %; Eosinophils # 0.1 K/mcL (0.0-0.6); Eosinophils % 1.3 %; Hematocrit 34.2 % (35.3-44.9); Hemoglobin 10.6 g/dL (11.5-15.4); Immature Granulocytes % 0.2 % (0-4); Lymphocytes # 2.4 K/mcL (0.6-4.6); Lymphocytes % 26.5 %; Mean Corpuscular Hemoglobin 27.4 pg (28.0-33.3); Mean Corpuscular Volume 88.4 fL (83.0-100.0); Mean Platelet Volume 9.1 fL (9.4-12.4); Monocytes # 0.5 K/mcL (0.0-1.3); Monocytes % 4.9 %; Neutrophils # 6.1 K/mcL (1.6-8.9); Platelet Count 313 K/mcL (140-400); Red Blood Count 3.87 M/mcL (3.82-4.97); Red Cell Distribution Width 16.6 % (11.5-14.5); Segmented Neutrophils % 66.9 %; White Blood Count 9.2 K/mcL (4.3-11.1)
[2020-11-24 12:10] LABS: Acetaminophen < 10 mcg/mL (10-20); BUN/Creatinine Ratio 16 (6-26); Blood Urea Nitrogen 11 mg/dL (6-20); Calcium 8.4 mg/dL (8.6-10.3); Carbon Dioxide 18 mEq/L (23-29); Chloride 110 mEq/L (98-107); Cholesterol 167 mg/dL (< 200); Ethanol < 10 mg/dL (Less than 10); Glucose 245 mg/dL (70-105); HDL Cholesterol 42 mg/dL (40-59); LDL Cholesterol,Calculated 107 mg/dL (< 100); Osmolality,Calculated 292 (280-300); Potassium 3.7 mEq/L (3.5-5.1); Salicylate < 2.5 mg/dL (15.0-30.0); Sodium 137 mEq/L (136-145); Triglycerides 88 mg/dL (< 150); eGFR For African Americans > 60 (> 60); eGFR For Non-African Americans > 60 (> 60)
[2020-11-24 15:47] LABS: Adenovirus Not Detected (Not Detect); Bordetella Pertussis Not Detected (Not Detect); Chlamydophila pneumoniae Not Detected (Not Detect); Coronavirus 229E Not Detected (Not Detect); Coronavirus HKU1 Not Detected (Not Detect); Coronavirus NL63 Not Detected (Not Detect); Coronavirus OC43 Not Detected (Not Detect); Human Metapneumovirus Not Detected (Not Detect); Human Rhinovirus/Enterovirus Not Detected (Not Detect); Influenza A Subtype 2009 H1 Not Detected (Not Detect); Influenza B Not Detected (Not Detect); Mycoplasma pneumoniae Not Detected (Not Detect); Parainfluenza Virus 1 Not Detected (Not Detect); Parainfluenza Virus 2 Not Detected (Not Detect); Parainfluenza Virus 3 Not Detected (Not Detect); Parainfluenza Virus 4 Not Detected (Not Detect); Respiratory Syncytial Virus Not Detected (Not Detect); SARS-CoV-2 Not Detected (Not Detect)
[2020-11-24] MEDS ORDERED: MOM Conc 10 ML UD.LIQ PO PRN (17:58)
[2020-11-24] MEDS ORDERED: Acetaminophen 325 MG TABLET PO PRN (17:58)
[2020-11-24] MEDS ORDERED: Mag Hydrox/Al Hydrox/Simeth 30 ML UDC PO PRN (17:58)
[2020-11-24] MEDS ORDERED: haloperidoL 5 MG TABLET PO PRN (17:58)
[2020-11-24] MEDS ORDERED: Haloperidol Lactate 5 MG/ML VIAL IM PRN (17:58)
[2020-11-24] MEDS ORDERED: *HR* LORazepam 1 MG TABLET PO PRN (17:58)
[2020-11-24] MEDS ORDERED: traZODone 50 MG TABLET PO PRN (17:58)
[2020-11-24] MEDS ORDERED: *HR* LORazepam 2 MG/ML VIAL IM PRN (17:58)
[2020-11-24 20:06] LABS: Estimated Average Glucose 200 mg/dl; Hemoglobin A1C 8.6 %
[2020-11-24] MEDS: Nicotine 21 MG PATCH.TD24 TD SCH (20:21)
[2020-11-24] MEDS: hydrOXYzine pamoate 25 MG CAPSULE PO PRN (21:25)
[2020-11-25] MEDS: Nicotine 21 MG PATCH.TD24 TD SCH (09:03)
[2020-11-25] MEDS: Cholecalciferol (D-3) 1,000 UNIT (25MCG) TABLET PO SCH (12:37)
[2020-11-25] MEDS: Topiramate 25 MG TABLET PO SCH ×2 (12:37→20:46)
[2020-11-25] MEDS: Fluticasone Propionate Nasal 50 MCG/SPRAY BOTTLE NS SCH (15:42)
[2020-11-25] MEDS: *HR* Metformin 500 MG TABLET PO SCH (16:45)
[2020-11-25] MEDS: GlipiZIDE 5 MG TABLET PO SCH (16:45)
[2020-11-25] MEDS: hydrOXYzine pamoate 25 MG CAPSULE PO PRN ×2 (18:34→20:47)
[2020-11-25] MEDS: Nicotine 2 MG GUM BC PRN ×2 (18:34→20:47)
[2020-11-26] MEDS: *HR* Metformin 500 MG TABLET PO SCH (08:59)
[2020-11-26] MEDS: Topiramate 25 MG TABLET PO SCH (08:59)
[2020-11-26] MEDS: GlipiZIDE 5 MG TABLET PO SCH (08:59)
[2020-11-26] MEDS: Cholecalciferol (D-3) 1,000 UNIT (25MCG) TABLET PO SCH (08:59)
[2020-11-26] MEDS: Fluticasone Propionate Nasal 50 MCG/SPRAY BOTTLE NS SCH (09:54)
[2020-11-26 10:43] VITALS: BP 114/71
== END 2020-11-26 13:35 | disposition home or self-care (01) | DRG 754 ==
LOC: EMEROOARM 10:15 → 1ANU 16:36
PROVIDERS: ADMIT Psychiatry & Neurology Psychiatry; ATTEND Psychiatry & Neurology Psychiatry